=== PATIENT | female | born 1985 | race African-American/Black ===

== ENCOUNTER 2018-09-21 13:40 | Inpatient (IN) | payer OTHER ==
[~2018-09-21] VITALS: Ht 165.1 cm; Wt 118.1 kg
--- NOTE | ~2018-09-21 | EKG ---
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1985 Requested By: Corrine Karimi Order Number: [id number] MD: Alen lBanc Measurements Intervals [place] Rate: 91 P: 40 SD: 146 QRS: 14 QRSD: 88 T: 4 QT: 337 QTc: 415 Interpretive Statements Sinus rhythm Borderline T abnormalities, anterior leads Baseline wander in lead(s) V3 No previous ECG available for comparison Electronically Signed On 09-22-2018 8:48:55 CDT by Alen Blanc [email or web address] <ELECTRONICALLY SIGNED> By: Alen Blanc MD, [facility] 09/22/18 [id number] Alen Blanc MD, [facility] /EPI
--- NOTE | ~2018-09-21 | PATH ---
[facility] [address] [place] [address] PATHOLOGY RPT PROCEDURE Name: KEAGAN THOMPSON Room #: 418-P [facility] IN .R.#: [id number] Admission: 09/21/18 Date of : 87 Discharge: 09/22/18 Report #: [id number] Path Case #: [id number] [facility] Accession Number: [id number] . 01 Material submitted: . APPENDIX . 01 Clinical history: . Acute appendicitis . 02 Diagnosis: Appendix, "apendix, appendectomy": - Acute and subacute appendicitis. (SHA:juarez; 09/23/2018) QMS/09/23/2018 . 02 Electronically signed: . Marcos Hughes MD, Pathologist NPI- [id number] . 01 Gross description: . The specimen is received in formalin, labeled "Keagan Thompson, appendix" and consists of a curved appendix measuring 6.0 cm in length and ranging from 0.5-0.9 cm in diameter. The serosa is pink-franklin and dusky with adhesions near the proximal margin. There is mesoappendix lining the entire specimen ranging from 0.5-1.5 cm. Sectioning reveals a pinpoint to dilated lumen (up to 0.4 cm) containing hemorrhagic material. There are 2 possible diverticula at the tip measuring 0.1 and 0.2 cm. Fixed Capital Clerk sections are submitted in A1. (SDY; 09/22/2018) SYU/SYU . 02 Pathologist provided ICD-10: K35.80 . 02 CPT . 721226 Specimen Comment: A courtesy copy of this report has been sent to Specimen Comment: [phone], , . Specimen Comment: Report sent to , DR YEUNG / DR PADILLA Specimen Comment: A duplicate report has been generated due to demographic updates. Performed at: [address] [facility] [address] [id number] MD Julio Wilson MD Phone: [phone] Performed at: 02 [place] [address] PATHOLOGY RPT PROCEDURE Name: JYAKEAGAN Rudolph Room #: 418-P [facility] M.R.#: [id number] Admission: 09/21/18 Date of : 87 Discharge: 09/22/18 Report #: [id number] Path Case #: [id number] [facility] [address], [place], [place] [id number] MD Rox Bauman MD Phone: [phone]
[2018-09-21 13:40] VITALS: BP 105/58
[~2018-09-21 13:40] MED LIST: ALBUTEROL INHAL17 GM IH; BACTRIM 400-801 EACH PO; BIRTH CONTROL; KEFLEX500 MG PO; MEDROL DOSPAK21 TA1 PO; ZPAK PO
[2018-09-21 14:01] LABS: URINE BILIRUBIN NEGATIVE (Negative); URINE BLOOD TRACE (Negative); URINE CLARITY CLEAR; URINE COLOR YELLOW; URINE GLUCOSE-RANDOM* NEGATIVE (Negative); URINE KETONES NEGATIVE (Negative); URINE NITRITE-REFLEX NEGATIVE (Negative); URINE PROTEIN (DIPSTICK) NEGATIVE (Negative); URINE SPECIFIC GRAVITY 1.015 (1.005-1.035)
[2018-09-21 14:20] LABS: SSA (PROTEIN CONFIRMATORY) TRACE (APPROX. 5) mg/dL (Negative); URINE LEUKOCYTES-REFLEX 1+ (Negative)
[2018-09-21 14:27] LABS: BACTERIA-REFLEX >30 Many /HPF (None Seen); CASTS None Seen /LPF (None Seen); CRYSTALS None Seen /LPF (None Seen); SQUAMOUS >10 Many /LPF (0-3); URINE RBC 0-2 Rare /HPF (0-2); URINE WBC-REFLEX 6-15 Few /HPF (0-5)
[2018-09-21 14:58] LABS: BASOPHILS 0.3 % (0.0-2.0); EOSINOPHILS 0.2 % (0.0-3.0); HEMATOCRIT 38.3 % (37.0-47.0); HEMOGLOBIN 12.9 gm/dL (12.0-15.0); LYMPHOCYTES 3.8 % (24.0-44.0); MCH 27.6 pg (26.0-34.0); MCHC 33.8 g/dL (28.0-37.0); MCV 81.7 fL (80.0-100.0); MONOCYTES 4.6 % (1.0-8.0); PLATELET COUNT 293 thou/uL (150-400); POLYS 91.1 % (36.0-66.0); RBC 4.69 mil/uL (4.20-5.00); RDW 13.5 % (10.5-14.5); WBC 19.7 thou/uL (4.0-11.0)
[2018-09-21 15:09] LABS: CALCIUM 9.6 mg/dL (8.5-10.1); CREATININE 1.1 mg/dL (0.6-1.0)
[2018-09-21 15:14] LABS: ALBUMIN 3.7 g/dL (3.4-5.0); TOTAL BILIRUBIN 0.5 mg/dL (<0.1-1.0); TOTAL PROTEIN 8.3 g/dL (6.4-8.2)
[2018-09-21] MEDS ORDERED: ASPIR 8181 MG PO (18:41)
[2018-09-21] MEDS ORDERED: COZAAR 25 MG TA25 M1 PO (18:41)
[2018-09-21] MEDS ORDERED: SPIRONOLACTONE25 M1 PO (18:41)
[2018-09-21] MEDS ORDERED: COREG25 MG PO (18:42)
[2018-09-21 18:45] VITALS: BP 110/61
[2018-09-21 19:39] VITALS: BP 111/57
[2018-09-21 20:14] VITALS: BP 124/60
[2018-09-22 05:37] VITALS: BP 108/60
[2018-09-22 06:00] LABS: ABSOLUTE NEUTROPHILS 8.1 thou/uL (1.4-8.2); BASOPHILS 0.8 % (0.0-2.0); EOSINOPHILS 0.2 % (0.0-3.0); HEMATOCRIT 35.7 % (37.0-47.0); HEMOGLOBIN 11.9 gm/dL (12.0-15.0); LYMPHOCYTES 18.2 % (24.0-44.0); MCH 27.8 pg (26.0-34.0); MCHC 33.5 g/dL (28.0-37.0); MCV 83.1 fL (80.0-100.0); MONOCYTES 7.4 % (1.0-8.0); PLATELET COUNT 269 thou/uL (150-400); POLYS 73.4 % (36.0-66.0); RBC 4.29 mil/uL (4.20-5.00)
[2018-09-22 06:19] LABS: CALCIUM 8.5 mg/dL (8.5-10.1); CREATININE 1.2 mg/dL (0.6-1.0); MAGNESIUM 1.5 mg/dL (1.8-2.4); POTASSIUM 3.4 mmol/L (3.5-5.1)
[2018-09-22 08:31] VITALS: BP 122/66
[2018-09-22] MEDS ORDERED: NORCO 5-325 TA1 EACH PO (11:25)
[2018-09-22] MEDS ORDERED: ONDANSETRON HCL4 M2 PO (11:25)
[2018-09-22 16:56] VITALS: BP 125/79
[2018-09-22 17:52] VITALS: BP 125/79
== END 2018-09-22 19:00 | disposition home or self-care (01) | DRG 342 ==
LOC: ER 13:40 → EROBS 16:22 → 4E 16:22 → ENTRNSPT 09-22 18:59 → 4E 09-22 19:00
PROVIDERS: Emergency Medicine; Nurse Practitioner
PROC: 0DTJ4ZZ Resection of Appendix, Percutaneous Endoscopic Approach (ICD-10-PCS; principal; 2018-09-22)
DX: K35.80 Unspecified acute appendicitis (principal); I42.9 Cardiomyopathy, unspecified; N39.0 Urinary tract infection, site not specified; Z79.82 Long term (current) use of aspirin; Z79.899 Other long term (current) drug therapy; Z88.8 Allergy status to other drugs, medicaments and biological substances; Z83.3 Family history of diabetes mellitus; Z82.49 Family history of ischemic heart disease and other diseases of the circulatory system; Z23 Encounter for immunization
CPT/HCPCS: 10084; 50010; 50101; 50249; 50411; 50555; 50558; 50739; 50740; 50962; 51975; 52265; 53307; 53310; 54022; 54118; 56525; 56526; 62110; 62900; 70005